=== PATIENT | male | born 1950 | race Caucasian/White ===

== ENCOUNTER 2022-01-30 21:05 | Inpatient (IN) | payer OTHER ==
[~2022-01-30 21:05] MED LIST: Iopamidol-370 76% 500 ML 1 ML ONE
[2022-01-30 21:52] LABS: INR-International Normal Ratio 0.9; Prothrombin Time 12.7 sec (12.0-14.7)
[2022-01-30 21:54] LABS: ALT (SGPT) 33 U/L (8-55); AST (SGOT) 20 U/L (5-34); Albumin 3.5 g/dL (3.4-4.8); Alkaline Phosphatase 76 U/L (40-110); Anion Gap 14 mmol/L (10-20); BUN (Urea Nitrogen) 17 mg/dL (8.4-25.7); Bilirubin, Total 0.4 mg/dL (0.2-1.2); CK (CPK) 69 U/L (30-200); Calc. Creatinine Clearance 0 mL/min (70-130); Calcium 8.6 mg/dL (7.8-10.44); Carbon Dioxide 27 mmol/L (23-31); Chloride 102 mmol/L (98-107); Estimated GFR 88; Glucose 128 mg/dL (83-110); Potassium 3.8 mmol/L (3.5-5.1); Protein, Total 6.5 g/dL (5.8-8.1); Sodium 139 mmol/L (136-145)
[2022-01-30] MEDS ORDERED: Aspirin 325 MG TAB ONE (22:32)
[2022-01-30 23:02] LABS: #Lymphocytes 1.9 thou/uL (1.20-3.40); #Monocytes 0.6 thou/uL (0.11-0.59); #Neutrophils 2.2 thou/uL (1.40-6.50); %Basophils 0.7 % (0.0-1.0); %Lymphocytes 40.4 % (21.0-51.0); %Monocytes 12.7 % (0.0-10.0); %Neutrophils 45.2 % (42.0-75.0); Hemoglobin 11.7 g/dL (14.0-18.0); Mean Corpuscular HGB CONC 33.4 g/dL (32.0-36.0); Mean Corpuscular Hemoglobin 28.2 pg (27.0-31.0); Mean Corpuscular Volume 84.4 fL (78.0-98.0); Mean Platelet Volume 13.7 fL (7.4-10.4); Platelet Count 63 thou/uL (130-400); Platelet Morphology Comment PLT clumps seen-LOW; RBC Distribution Width 14.8 % (11.5-14.5); Red Blood Cell (RBC) Count 4.15 mill/uL (4.70-6.10); White Blood Cell (WBC) Count 4.8 thou/uL (4.8-10.8)
[2022-01-31] MEDS ORDERED: Acetaminophen 325 MG TAB PO PRN (06:33)
[2022-01-31] MEDS ORDERED: Labetalol HCl 100 MG/20 ML VIAL SLOW IVP PRN (06:33)
[2022-01-31] MEDS ORDERED: hydrALAZINE 20 MG/ML VIAL SLOW IVP PRN (06:33)
[2022-01-31] MEDS ORDERED: Ondansetron PF 4 MG/2 ML Vial IVP PRN (06:33)
[2022-01-31 07:33] LABS: Cardiac Risk 3.7 (Less than 4.5)
[2022-01-31] MEDS ORDERED: Aspirin 81 mg Enteric Coated Tablet PO SCH (13:45)
[2022-01-31] MEDS ORDERED: Loratadine 10 MG TAB PO SCH (13:45)
[2022-01-31] MEDS: Minocycline HCl 50 MG CAP PO SCH (20:49)
[2022-01-31] MEDS ORDERED: Famotidine 20 MG TAB PO SCH (21:00)
[2022-02-01 05:36] LABS: #Lymphocytes 1.8 thou/uL (1.20-3.40); #Monocytes 0.6 thou/uL (0.11-0.59); %Basophils 0.2 % (0.0-1.0); %Lymphocytes 40.1 % (21.0-51.0); %Monocytes 13.1 % (0.0-10.0); %Neutrophils 45.5 % (42.0-75.0); Hemoglobin 12.2 g/dL (14.0-18.0); Mean Corpuscular HGB CONC 33.4 g/dL (32.0-36.0); Mean Corpuscular Hemoglobin 28.5 pg (27.0-31.0); Mean Corpuscular Volume 85.3 fL (78.0-98.0); Mean Platelet Volume 11.7 fL (7.4-10.4); Platelet Count 69 thou/uL (130-400); RBC Distribution Width 14.7 % (11.5-14.5); Red Blood Cell (RBC) Count 4.27 mill/uL (4.70-6.10); White Blood Cell (WBC) Count 4.4 thou/uL (4.8-10.8)
[2022-02-01 05:58] LABS: Anion Gap 13 mmol/L (10-20); BUN (Urea Nitrogen) 12 mg/dL (8.4-25.7); Calc. Creatinine Clearance 121 mL/min (70-130); Calcium 8.8 mg/dL (7.8-10.44); Carbon Dioxide 27 mmol/L (23-31); Cardiac Risk 3.5 (Less than 4.5); Chloride 101 mmol/L (98-107); Cholesterol 179 mg/dl (< 200 Desired); Estimated GFR 92; Glucose 153 mg/dL (83-110); HDL Cholesterol 51 mg/dL (>60 Neg Risk); LDL Cholesterol, Calculated 112 mg/dL; Potassium 3.8 mmol/L (3.5-5.1); Sodium 137 mmol/L (136-145); Triglycerides 80 mg/dL (Less than 150)
[2022-02-01] MEDS: Minocycline HCl 50 MG CAP PO SCH ×2 (08:26→21:27)
[2022-02-01] MEDS: Loratadine 10 MG TAB PO SCH (08:27)
[2022-02-01] MEDS: Aspirin 81 mg Enteric Coated Tablet PO SCH (08:27)
[2022-02-01] MEDS ORDERED: Ezetimibe 10 MG TAB PO SCH ×2 (10:00)
[2022-02-01] MEDS ORDERED: hydrOXYzine 10 MG TAB PO PRN (21:57)
[2022-02-02 02:44] VITALS: BMI 31.9
[2022-02-02 05:30] LABS: #Eosinphils 0.1 thou/uL (0.0-0.7); #Lymphocytes 2.1 thou/uL (1.20-3.40); #Monocytes 0.7 thou/uL (0.11-0.59); #Neutrophils 3.1 thou/uL (1.40-6.50); %Basophils 0.2 % (0.0-1.0); %Eosinophils 1.5 % (0.0-10.0); %Lymphocytes 35.1 % (21.0-51.0); %Monocytes 12.1 % (0.0-10.0); %Neutrophils 51.2 % (42.0-75.0); Hemoglobin 13.2 g/dL (14.0-18.0); Mean Corpuscular HGB CONC 32.5 g/dL (32.0-36.0); Mean Corpuscular Hemoglobin 27.8 pg (27.0-31.0); Mean Corpuscular Volume 85.4 fL (78.0-98.0); Mean Platelet Volume 13.2 fL (7.4-10.4); Platelet Count 59 thou/uL (130-400); RBC Distribution Width 14.7 % (11.5-14.5); Red Blood Cell (RBC) Count 4.75 mill/uL (4.70-6.10)
[2022-02-02 05:51] LABS: Anion Gap 14 mmol/L (10-20); BUN (Urea Nitrogen) 15 mg/dL (8.4-25.7); Calc. Creatinine Clearance 133 mL/min (70-130); Calcium 9.4 mg/dL (7.8-10.44); Carbon Dioxide 23 mmol/L (23-31); Chloride 102 mmol/L (98-107); Estimated GFR 95; Glucose 111 mg/dL (83-110); Potassium 4.3 mmol/L (3.5-5.1); Sodium 135 mmol/L (136-145)
[2022-02-02] MEDS: Aspirin 81 mg Enteric Coated Tablet PO SCH (09:33)
[2022-02-02] MEDS: Minocycline HCl 50 MG CAP PO SCH ×2 (09:33→20:40)
[2022-02-02] MEDS: Loratadine 10 MG TAB PO SCH (09:34)
[2022-02-02] MEDS: Ezetimibe 10 MG TAB PO SCH (09:34)
[2022-02-03] MEDS: Minocycline HCl 50 MG CAP PO SCH ×2 (09:46→22:39)
[2022-02-03] MEDS: Loratadine 10 MG TAB PO SCH (09:47)
[2022-02-03] MEDS: Aspirin 81 mg Enteric Coated Tablet PO SCH (09:47)
[2022-02-03] MEDS: Ezetimibe 10 MG TAB PO SCH (09:47)
[2022-02-03] MEDS ORDERED: Atenolol 25 MG TAB PO SCH (16:30)
[2022-02-03] MEDS: hydrOXYzine 10 MG TAB PO PRN ×2 (17:03→22:40)
[2022-02-04] MEDS ORDERED: Lisinopril 20 MG TAB PO SCH (09:00)
[2022-02-04] MEDS: Atenolol 25 MG TAB PO SCH (09:34)
[2022-02-04] MEDS: Aspirin 81 mg Enteric Coated Tablet PO SCH (09:34)
[2022-02-04] MEDS: Ezetimibe 10 MG TAB PO SCH (09:34)
[2022-02-04] MEDS: Loratadine 10 MG TAB PO SCH (09:35)
[2022-02-04] MEDS: Minocycline HCl 50 MG CAP PO SCH ×2 (09:35→20:59)
[2022-02-04] MEDS: hydrOXYzine 10 MG TAB PO PRN (20:59)
[2022-02-04] MEDS: Fish Oil 1,000 MG CAP PO SCH (20:59)
[2022-02-05 06:56] LABS: #Eosinphils 0.1 thou/uL (0.0-0.7); #Lymphocytes 2.5 thou/uL (1.20-3.40); #Neutrophils 3.3 thou/uL (1.40-6.50); %Basophils 0.3 % (0.0-1.0); %Eosinophils 1.2 % (0.0-10.0); %Lymphocytes 35.7 % (21.0-51.0); %Monocytes 14.3 % (0.0-10.0); %Neutrophils 48.5 % (42.0-75.0); Hemoglobin 12.2 g/dL (14.0-18.0); Mean Corpuscular HGB CONC 33.5 g/dL (32.0-36.0); Mean Corpuscular Hemoglobin 28.3 pg (27.0-31.0); Mean Corpuscular Volume 84.5 fL (78.0-98.0); Mean Platelet Volume 12.2 fL (7.4-10.4); Platelet Count 64 thou/uL (130-400); RBC Distribution Width 14.7 % (11.5-14.5); Red Blood Cell (RBC) Count 4.31 mill/uL (4.70-6.10); White Blood Cell (WBC) Count 6.9 thou/uL (4.8-10.8)
[2022-02-05 07:13] LABS: Anion Gap 11 mmol/L (10-20); BUN (Urea Nitrogen) 20 mg/dL (8.4-25.7); Calc. Creatinine Clearance 108 mL/min (70-130); Calcium 8.9 mg/dL (7.8-10.44); Carbon Dioxide 27 mmol/L (23-31); Chloride 101 mmol/L (98-107); Estimated GFR 85; Glucose 190 mg/dL (83-110); Potassium 4.2 mmol/L (3.5-5.1); Sodium 135 mmol/L (136-145)
[2022-02-05] MEDS ORDERED: Lisinopril 5 MG TAB PO SCH (09:00)
[2022-02-05] MEDS: Atenolol 25 MG TAB PO SCH (11:03)
[2022-02-05] MEDS: Loratadine 10 MG TAB PO SCH (11:03)
[2022-02-05] MEDS: Fish Oil 1,000 MG CAP PO SCH (11:04)
[2022-02-05] MEDS: Aspirin 81 mg Enteric Coated Tablet PO SCH (11:05)
[2022-02-05] MEDS: Minocycline HCl 50 MG CAP PO SCH (11:05)
[2022-02-06 00:01] VITALS: BP 128/91; TEMP 98.4
== END 2022-02-05 20:47 | DRG 65 ==
LOC: ERS 21:09 → EEVIPCON 23:48 → INTOOBSV 23:48 → NEURO 23:48 → OBSVTOIN 02-03 09:20
PROVIDERS: ADMIT Internal Medicine; ATTEND Internal Medicine
DX: I63.9 Cerebral infarction, unspecified (principal); G81.94 Hemiplegia, unspecified affecting left nondominant side; I47.1 Supraventricular tachycardia; I10 Essential (primary) hypertension; E78.5 Hyperlipidemia, unspecified; I73.9 Peripheral vascular disease, unspecified; I25.10 Atherosclerotic heart disease of native coronary artery without angina pectoris; K21.9 Gastro-esophageal reflux disease without esophagitis; D69.6 Thrombocytopenia, unspecified; R21 Rash and other nonspecific skin eruption; Z91.018 Allergy to other foods; Z88.8 Allergy status to other drugs, medicaments and biological substances; Z79.82 Long term (current) use of aspirin; Z79.899 Other long term (current) drug therapy; Z95.5 Presence of coronary angioplasty implant and graft; Z98.890 Other specified postprocedural states; Z87.891 Personal history of nicotine dependence; I25.2 Old myocardial infarction
CPT/HCPCS: 36415; 70496; 70498; 70551; 80048; 80061; 84484; 85025; 93306; 99285; Q9967

== ENCOUNTER 2023-07-29 06:27 | Inpatient (IN) | payer OTHER ==
[2023-07-29] MEDS ORDERED: Acetaminophen 325 MG TAB PO PRN (10:21)
[2023-07-29] MEDS ORDERED: Acetaminophen 650 MG Suppository PR PRN (10:21)
[2023-07-29] MEDS ORDERED: HYDROcodone/Acetaminophen 5/325 mg Tablet PO PRN (10:21)
[2023-07-29 10:23] VITALS: BMI 38.4
[2023-07-29] MEDS: Cefepime 2 GM in Sodium Chloride 0.9% 100 ML IVPB SCH (14:14)
[2023-07-29] MEDS ORDERED: Non-Formulary Item 1 EACH (Calcium Carbonate [Calcium] 500 MG Tab.Chew) PO SCH (15:00)
[2023-07-29] MEDS: Vancomycin HCl 750 MG in Sodium Chloride 0.9% 250 ML 250 ML IVPB SCH (15:13)
[2023-07-29] MEDS: Calcium Carbonate 500 MG ChewTAB PO SCH (15:14)
[2023-07-29] MEDS ORDERED: PROPYLENE GLYCOL EA EYE SCH (21:00)
[2023-07-29] MEDS ORDERED: GLYCERIN EA EYE SCH (21:00)
[2023-07-29] MEDS ORDERED: TERAZOSIN HCL 2 MG PO SCH (21:00)
[2023-07-29] MEDS ORDERED: [UNRECOGNIZED DRUG - OTHER] EA EYE SCH (21:00)
[2023-07-29] MEDS ORDERED: Non-Formulary Item 1 EACH (Lactulose [Lactulose] 10 GM/15 ML Solution) PO SCH (21:00)
[2023-07-29] MEDS ORDERED: TIMOLOL EA EYE SCH (21:00)
[2023-07-29] MEDS ORDERED: METHYLCELLULOSE 500 MG PO SCH (21:00)
[2023-07-29] MEDS: Terazosin HCl 1 MG CAP PO SCH (21:19)
[2023-07-29] MEDS: Famotidine 20 MG TAB PO SCH (21:20)
[2023-07-29] MEDS: Methylcellulose 500 MG TAB PO SCH (21:20)
[2023-07-29] MEDS: Carvedilol 6.25 MG TAB PO SCH (21:20)
[2023-07-29] MEDS: Latanoprost 0.005% Ophth Soln 2.5 ml Bottle EA EYE SCH (21:21)
[2023-07-29] MEDS: Lactulose 20 GM (30 mL) UDCUP PO SCH (21:21)
[2023-07-29] MEDS: HYDROcodone/Acetaminophen 5/325 mg Tablet PO PRN (21:22)
[2023-07-29] MEDS: Timolol 0.25% Ophth Soln 5 ml Bottle EA EYE SCH (21:33)
[2023-07-29] MEDS: Artificial Tear Sol 15 ML BOT EA EYE SCH (21:33)
[2023-07-30 04:32] LABS: #Monocytes 0.5 thou/uL (0.11-0.59); #Neutrophils 4.5 thou/uL (1.40-6.50); %Basophils 0.2 % (0.0-1.0); %Eosinophils 0.2 % (0.0-10.0); %Lymphocytes 19.7 % (21.0-51.0); %Monocytes 8.1 % (0.0-10.0); %Neutrophils 70.1 % (42.0-75.0); Hematocrit 35.5 % (42.0-52.0); Hemoglobin 11.5 g/dL (14.0-18.0); Mean Corpuscular HGB CONC 32.4 g/dL (32.0-36.0); Mean Corpuscular Hemoglobin 27.5 pg (27.0-31.0); Mean Corpuscular Volume 84.9 fl (78.0-98.0); RBC Distribution Width 15.1 % (11.5-14.5); Red Blood Cell (RBC) Count 4.18 mill/uL (4.70-6.10); White Blood Cell (WBC) Count 6.4 10x3/uL (4.8-10.8)
[2023-07-30 04:37] LABS: Platelet Count 75 10x3/uL (130-400)
[2023-07-30 04:55] LABS: Anion Gap 11 mmol/L (10-20); BUN (Urea Nitrogen) 19 mg/dL (8.4-25.7); Calc. Creatinine Clearance 93 mL/min (70-130); Calcium 8.7 mg/dL (7.8-10.44); Carbon Dioxide 25 mmol/L (23-31); Chloride 101 mmol/L (98-107); Estimated GFR 82; Glucose 187 mg/dL (83-110); Potassium 3.8 mmol/L (3.5-5.1); Sodium 133 mmol/L (136-145)
[2023-07-30] MEDS: Lisinopril 20 MG TAB PO SCH (08:33)
[2023-07-30] MEDS: Aspirin 81 mg Enteric Coated Tablet PO SCH (08:33)
[2023-07-30] MEDS: Isosorbide Mononitrate 30 MG ER.TAB PO SCH (08:33)
[2023-07-30] MEDS: Enoxaparin 40 MG (0.4 mL) SYRINGE SC SCH (08:34)
[2023-07-30] MEDS: Furosemide 40 MG TAB PO SCH (08:34)
[2023-07-30] MEDS ORDERED: FLU VACC QS2023(65UP)/MF59C/PF 60 MCG/0.5 ML SYRINGE IM ONE (09:00)
[2023-07-30 14:40] LABS: Vancomycin, Trough 12.8 ug/mL
[2023-07-30] MEDS: Folic Acid 1 MG TAB PO SCH (20:25)
[2023-07-31] MEDS: Carvedilol 3.125 MG TAB PO SCH (08:34)
[2023-07-31] MEDS: Lisinopril 10 MG TAB PO SCH (08:34)
[2023-07-31] MEDS: Furosemide 20 MG TAB PO SCH (08:35)
[2023-07-31 18:00] LABS: #Monocytes 0.6 thou/uL (0.11-0.59); %Basophils 0.4 % (0.0-1.0); %Eosinophils 0.4 % (0.0-10.0); %Lymphocytes 45.2 % (21.0-51.0); %Monocytes 11.6 % (0.0-10.0); %Neutrophils 39.5 % (42.0-75.0); Hematocrit 32.2 % (42.0-52.0); Hemoglobin 10.6 g/dL (14.0-18.0); Mean Corpuscular HGB CONC 32.9 g/dL (32.0-36.0); Mean Corpuscular Hemoglobin 27.3 pg (27.0-31.0); RBC Distribution Width 15.5 % (11.5-14.5); Red Blood Cell (RBC) Count 3.88 mill/uL (4.70-6.10); White Blood Cell (WBC) Count 5.1 10x3/uL (4.8-10.8)
[2023-07-31 18:21] LABS: Anion Gap 12 mmol/L (10-20); BUN (Urea Nitrogen) 14 mg/dL (8.4-25.7); CRP (Inflammatory) 10.13 mg/dL (= or < 0.5); Calc. Creatinine Clearance 92 mL/min (70-130); Calcium 9.1 mg/dL (7.8-10.44); Carbon Dioxide 27 mmol/L (23-31); Chloride 102 mmol/L (98-107); Estimated GFR 81; Glucose 132 mg/dL (83-110); Potassium 3.8 mmol/L (3.5-5.1); Sodium 137 mmol/L (136-145)
[2023-07-31 18:36] LABS: CellaVision Operator ID LAB.GE; Large Platelets 2.9 % (0-5); Platelet Adequacy Comment Platelets Normal; Polychromasia SLIGHT = 2-3 cells HPF (0-2)
[2023-08-01 02:22] LABS: #Monocytes 0.6 thou/uL (0.11-0.59); #Neutrophils 1.7 thou/uL (1.40-6.50); %Basophils 0.6 % (0.0-1.0); %Eosinophils 0.4 % (0.0-10.0); %Lymphocytes 47.1 % (21.0-51.0); %Monocytes 12.3 % (0.0-10.0); Hematocrit 33.7 % (42.0-52.0); Hemoglobin 10.9 g/dL (14.0-18.0); Mean Corpuscular HGB CONC 32.3 g/dL (32.0-36.0); Mean Corpuscular Hemoglobin 27.3 pg (27.0-31.0); Mean Corpuscular Volume 84.5 fl (78.0-98.0); Mean Platelet Volume 11.8 fL (7.4-10.4); RBC Distribution Width 15.4 % (11.5-14.5); Red Blood Cell (RBC) Count 3.99 mill/uL (4.70-6.10)
[2023-08-01 02:40] LABS: Vancomycin, Trough 11.4 ug/mL
[2023-08-01 03:29] LABS: Anion Gap 13 mmol/L (10-20); BUN (Urea Nitrogen) 13 mg/dL (8.4-25.7); CRP (Inflammatory) 8.27 mg/dL (= or < 0.5); Calc. Creatinine Clearance 108 mL/min (70-130); Carbon Dioxide 27 mmol/L (23-31); Chloride 102 mmol/L (98-107); Estimated GFR 92; Glucose 146 mg/dL (83-110); Potassium 3.8 mmol/L (3.5-5.1); Sodium 138 mmol/L (136-145)
[2023-08-01 03:37] LABS: Platelet Count 99 10x3/uL (130-400)
[2023-08-01] MEDS: Vancomycin 1 GM in Premix 1 BAG IVPB SCH (03:42)
[2023-08-01] MEDS: Lisinopril 20 MG TAB PO SCH (08:55)
[2023-08-01 14:17] VITALS: BP 156/70; TEMP 98.2
== END 2023-08-01 17:15 | DRG 872 ==
LOC: EEVIPCON 09:24 → T4-B 09:24
PROVIDERS: ADMIT Family Medicine; ATTEND Internal Medicine
DX: A41.9 Sepsis, unspecified organism (principal); L03.211 Cellulitis of face; E87.1 Hypo-osmolality and hyponatremia; I73.9 Peripheral vascular disease, unspecified; K21.9 Gastro-esophageal reflux disease without esophagitis; N18.2 Chronic kidney disease, stage 2 (mild); I12.9 Hypertensive chronic kidney disease with stage 1 through stage 4 chronic kidney disease, or unspecified chronic kidney disease; D69.6 Thrombocytopenia, unspecified; D64.9 Anemia, unspecified; I25.10 Atherosclerotic heart disease of native coronary artery without angina pectoris; E78.5 Hyperlipidemia, unspecified; I25.2 Old myocardial infarction; Z88.8 Allergy status to other drugs, medicaments and biological substances; Z91.010 Allergy to peanuts; Z79.82 Long term (current) use of aspirin; Z79.899 Other long term (current) drug therapy; Z98.890 Other specified postprocedural states
CPT/HCPCS: 36415; 80048; 80202; 85025; 86140; 87081; 97139; G0306; J0692; J3370; J3370-JW; J3490; J7050